=== PATIENT | female | born 1980 | race Two or more races ===

== ENCOUNTER 2016-09-13 01:44 | Observation (INO) | payer MEDICAID ==
[~2016-09-13] VITALS: Ht 149.9 cm; Wt 111.1 kg
[2016-09-13] MEDS ORDERED: LACTATED RINGERS 1,000 ML IV SCH (02:15)
[2016-09-13] MEDS ORDERED: ACETAMINOPHEN 500MG TABLET PO NR (02:15)
[2016-09-13] MEDS ORDERED: CEFAZOLIN 2,000 MG in DEXT 5% WATER 100 ML IV NR (03:00)
[2016-09-13 03:01] LABS: BASOPHILS % 0.8 % (0.0-2.0); EOSINOPHILS % 1.5 % (0.0-5.0); HEMATOCRIT. 29.6 % (36.0-48.0); HEMOGLOBIN. 9.7 g/dL (12.0-16.0); LYMPHOCYTES % 22.6 % (20.0-50.0); MEAN CORPUSCULAR HEMOGLOBIN 26.1 pg (28.0-32.0); MEAN CORPUSCULAR VOLUME 79.5 fL (81.0-99.0); MEAN PLATELET VOLUME 8.8 fl (7.4-10.4); MONOCYTES % 6.7 % (2.0-8.0); NEUTROPHILS % 68.4 % (40.0-76.0); PLATELET 264 x1000/uL (130-400); RED BLOOD CELL COUNT 3.72 mill/uL (4.2-5.4); RED CELL DISTRIBUTION WIDTH 13.9 % (11.6-14.6)
[2016-09-13 03:06] LABS: CLARITY URINE CLEAR (CLEAR); COLOR URINE YELLOW (YELLOW); GLUCOSE URINE NEGATIVE (NEGATIVE); KETONES URINE NEGATIVE (NEGATIVE); LEUKOCYTE ESTERASE URINE 1+ (NEGATIVE); NITRITE URINE NEGATIVE (NEGATIVE); OCCULT BLOOD URINE NEGATIVE (NEGATIVE); PROTEIN URINE 2+ (NEGATIVE); SPECIFIC GRAVITY URINE 1.019 (1.005-1.030)
[2016-09-13 03:15] LABS: CARBON DIOXIDE 20 mEq/L (21-32); CHLORIDE 109 mEq/L (98-107)
[2016-09-13 03:17] LABS: D-DIMER 1.3 mg/L FEU (<0.50); INR 0.9; PROTHROMBIN TIME 9.6 sec
== END 2016-09-13 04:30 | disposition left against medical advice (07) ==
LOC: L&D 01:44
PROVIDERS: ADMIT Specialist; ATTEND Specialist
DX: O26.893 Other specified pregnancy related conditions, third trimester (principal); R10.32 Left lower quadrant pain; Z3A.34 34 weeks gestation of pregnancy
CPT/HCPCS: 36415; 80053; 81001; 84550; 85025; 85379; 85384; 85610; 85730; 96360; 96361; 96365; 99281; G0378; J0690; J7120; J7060

== ENCOUNTER 2017-06-15 00:16 | Emergency (ER) | payer MEDICAID ==
[~2017-06-15] VITALS: Ht 162.6 cm; Wt 73.0 kg
[2017-06-15] MEDS ORDERED: SODIUM CHLORIDE 0.9% 1,000 ML IV ONE (01:28)
[2017-06-15] MEDS ORDERED: ONDANSETRON HCL 4MG/2ML VIAL IV STA (01:28)
[2017-06-15] MEDS ORDERED: KETOROLAC 30MG/ML VIAL IV STA (01:28)
[2017-06-15 01:50] LABS: BASOPHILS % 0.5 % (0.0-2.0); CHLORIDE 105 mEq/L (98-107); EOSINOPHILS % 2.2 % (0.0-5.0); HEMOGLOBIN. 12.2 g/dL (12.0-16.0); LYMPHOCYTES % 31.8 % (20.0-50.0); MEAN CORPUSCULAR HEMOGLOBIN 24.2 pg (28.0-32.0); MEAN CORPUSCULAR VOLUME 75.2 fL (81.0-99.0); MEAN PLATELET VOLUME 7.4 fl (7.4-10.4); MONOCYTES % 7.4 % (2.0-8.0); NEUTROPHILS % 58.1 % (40.0-76.0); PLATELET 400 x1000/uL (130-400); RED BLOOD CELL COUNT 5.05 mill/uL (4.2-5.4); RED CELL DISTRIBUTION WIDTH 17.7 % (11.6-14.6)
[2017-06-15 03:45] LABS: CLARITY URINE CLOUDY (CLEAR); COLOR URINE YELLOW (YELLOW); KETONES URINE NEGATIVE (NEGATIVE); LEUKOCYTE ESTERASE URINE NEGATIVE (NEGATIVE); NITRITE URINE NEGATIVE (NEGATIVE); OCCULT BLOOD URINE NEGATIVE (NEGATIVE); PH URINE 7.5 (4.5-8.0); PROTEIN URINE NEGATIVE (NEGATIVE); SPECIFIC GRAVITY URINE 1.022 (1.005-1.030)
[2017-06-15 06:41] VITALS: BP 143/86
== END 2017-06-15 06:44 | disposition home or self-care (01) ==
LOC: ER 00:16
DX: R10.9 Unspecified abdominal pain (principal); R11.2 Nausea with vomiting, unspecified; I10 Essential (primary) hypertension; Z87.442 Personal history of urinary calculi
CPT/HCPCS: 36415; 74176; 80053; 81003; 81025; 83690; 85025; 96361; 96374; 96375; 99285; J1885; J2405; J7030; Z7610